=== PATIENT | male | born 1975 | race Hispanic/Latino ===

== ENCOUNTER 2021-10-10 09:27 | Emergency (ER) | payer MEDICARE, MEDICAID ==
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
[2021-10-10 12:29] LABS: Basophils % (Auto) 0.7 % (0.0-1.8); Eosinophils # (Auto) 0.1 K/mm3 (0.0-0.4); Eosinophils % (Auto) 1.6 % (0.0-4.3); Hematocrit 44.4 % (35.5-45.6); Hemoglobin 14.7 gm/dl (11.8-15.2); Lymphocytes # (Auto) 2.2 K/mm3 (1.2-5.4); Lymphocytes % (Auto) 35.1 % (13.4-35.0); Mean Corpuscular HGB Conc 33 % (32-34); Mean Corpuscular Volume 85 fl (84-94); Monocytes # (Auto) 0.5 K/mm3 (0.0-0.8); Monocytes % (Auto) 8.3 % (0.0-7.3); Platelet Count 218 K/mm3 (140-440); Red Blood Count 5.21 M/mm3 (3.65-5.03); Red Cell Distribution Width 15.7 % (13.2-15.2)
[2021-10-10 12:43] LABS: Alanine Aminotransferase 11 units/L (7-56); BUN/Creatinine Ratio 24; Blood Urea Nitrogen 19 mg/dL (9-20); Calcium 9.3 mg/dL (8.4-10.2); Hemolysis Index 2
[2021-10-10] MEDS ORDERED: SODIUM CHLORIDE 0.9% 1000 ML 1,000 ML IV ONE ×3 (12:47→18:43)
--- NOTE | 2021-10-10 12:54 | Cat Scan Report ---
CT CERVICAL SPINE WITHOUT CONTRAST INDICATION / CLINICAL INFORMATION: fall, leg weakness. TECHNIQUE: Axial CT images were obtained through the cervical spine. Sagittal and coronal reformatted images were produced. All CT scans at this location are performed using CT dose reduction for ALARA by means of automated exposure control. COMPARISON: None available. FINDINGS: C3-C5 ACDF. No evidence of hardware complication. Normal alignment. Vertebral body heights are intact . There is no evidence of fracture. No significant spinal canal narrowing. Prevertebral and paraverte bral soft tissues are within normal limits. Visualized lung apices are clear. IMPRESSION: No acute findings of the cervical spine. Signer Name: Royce Rosales MD Signed: 10/10/2021 12:50 PM Workstation Name: [id number]
[2021-10-10 12:58] LABS: Cocaine Screen,Urine Negative; Methadone Screen,Urine Negative; Opiate Screen,Urine Negative
--- NOTE | 2021-10-10 12:59 | Cat Scan Report ---
EXAMINATION: CT thoracic spine wo con. HISTORY: fall, leg weakness TECHNIQUE: Axial CT examination of the thoracic spine was obtained, with sagittal and coronal reforma tions. All CT scans at this location are performed using CT dose reduction for ALARA by means of auto mated exposure control. COMPARISON: None available. FINDINGS: Thoracic spinal alignment is preserved. Mild chronic superior endplate deformity with Schmorl's node at T10. Other vertebral body heights are preserved. No evidence of acute fracture. No significant yamileth tral canal narrowing. Minimal spondylosis, commensurate for age. There are multiple remote left-sided rib fractures, many of which are internally fixated. Partially imaged internally fixated fractures o f the left scapula. Left lower lobe pleural-based consolidative opacity with traction of the bronchovascular bundles, mos t compatible with round atelectasis. No acute process of the chest. Partially imaged postsurgical garrick nges of the stomach. Minimally complex cysts in the left kidney. No acute abnormality of the upper ab domen. IMPRESSION: 1. No acute findings of the thoracic spine. 2. Sequela of remote trauma of the left ribs/chest with rounded atelectasis of the left lower lobe. 3. Other incidental findings as above. Signer Name: Royce Rosales MD Signed: 10/10/2021 12:55 PM Workstation Name: [id number]
--- NOTE | 2021-10-10 13:04 | Cat Scan Report ---
EXAMINATION: CT lumbar spine wo con. HISTORY: fall, leg weakness TECHNIQUE: Axial CT examination of the lumbar spine was obtained, with sagittal and coronal reformati ons. All CT scans at this location are performed using CT dose reduction for ALARA by means of automa domenico exposure control. COMPARISON: None available. FINDINGS: Lumbar spinal alignment is normal. There are postoperative changes related to prior posterior spinal interbody fusion spanning L2-S1. 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 No evidence of hardware complication. Vertebral body heights are intact. There is no evidence of fracture. No significant spinal canal narr owing. Paravertebral soft tissues and retroperitoneal structures demonstrate no acute abnormality. IMPRESSION: 1. Postoperative changes of posterior spinal interbody fusion of L2-S1. No acute abnormality of the l umbar spine. No significant central canal narrowing. 2. Postoperative changes of left SI joint fusion. There is moderate erosive arthropathy of the left S I joint, likely related to prior surgery/trauma. Signer Name: Royce Rosales MD Signed: 10/10/2021 12:59 PM Workstation Name: [id number]
[2021-10-10 13:08] LABS: Amorphous Crystals,Urine Few; Bacteria,Urine 4+ /HPF (Negative); Bilirubin,Urine NEG (Negative); Blood,Urine NEG (Negative); Color,Urine Amber (Yellow); Mucus,Urine 3+ /HPF
[2021-10-10] MEDS ORDERED: HYDROmorphone 1 MG/1 ML INJ IV ONE (13:14)
[2021-10-10 13:15] LABS: Amphetamine Screen,Urine Positive; Benzodiazepines Screen,Urine Positive; Cannabinoid Screen,Urine Positive
[2021-10-10] MEDS ORDERED: cefTRIAXone/NS 1 GM/50 ML 1 GM/50 ML BAG IV ONE (13:26)
--- NOTE | 2021-10-10 14:51 | Magnetic Resonance Report ---
MR thoracic spine wo con INDICATION / CLINICAL INFORMATION: fall leg weakness. TECHNIQUE: Multisequence, multiplanar images of the thoracic spine were obtained. COMPARISON: CT done earlier today FINDINGS: ALIGNMENT: Normal alignment. VERTEBRAE:No aggressive osseous marrow signal. Vertebral body heights are preserved. SPINAL CORD: No abnormal cord signal. SPONDYLOSIS: No significant spinal canal or foraminal stenosis. PARASPINAL SOFT TISSUES: No significant abnormality. ADDITIONAL FINDINGS: None. IMPRESSION: No significant thoracic spine abnormality. Signer Name: Liam Villarreal MD Signed: 10/10/2021 2:46 PM Workstation Name: [id number]
--- NOTE | 2021-10-10 15:13 | Magnetic Resonance Report ---
. MR lumbar spine wo con INDICATION / CLINICAL INFORMATION: fall leg weakness. TECHNIQUE: Multisequence, multiplanar images of the lumbar spine were obtained. COMPARISON: CT done earlier today. FINDINGS: POST-SURGICAL CHANGES: Previous decompressive laminectomy and posterior fusion from L2 into the sacru m. ALIGNMENT: Normal alignment. VERTEBRAE:No aggressive osseous marrow signal. Vertebral body heights are preserved. VISUALIZED SPINAL CORD: The conus appears within normal limits. [id number] ANALYSIS: L1-2: No significant spinal canal stenosis. No significant foraminal narrowing. L2-3: No significant spinal canal stenosis. No significant foraminal narrowing. L3-4: No significant spinal canal stenosis. No significant foraminal narrowing. L4-5: No significant spinal canal stenosis. No significant foraminal narrowing. L5-S1: No significant spinal canal stenosis. No significant foraminal narrowing. PARASPINAL SOFT TISSUES: No significant abnormality. ADDITIONAL FINDINGS: None. IMPRESSION: No acute abnormality of the lumbar spine. Postsurgical changes as described without recurrent spinal stenosis. Definitions used for the purposes of this report: Lumbar canal stenosis (Bell et al. Br J Radiol. 2012;86(8786):[id number]): No stenosis: No attenuation of the CSF spaces Mild stenosis: Anterior CSF space mildly obliterated Moderate stenosis: Anterior CSF space is moderately obliterated; cauda equina partially aggregated Severe stenosis: Marked compression of the dural sac; cauda equina cannot be visually and a ppear as a bundle Lumbar lateral recess stenosis (Vlad et al. World J Radiol. 2017 November 13;9(5):223-229): No stenosis: Nerve root is bathed in fluid Mild stenosis: Narrowing of the lateral recess without root deviation Moderate stenosis: Narrowing of the recess with nerve root deviation Severe stenosis: Compression of the nerve root Lumbar neural foraminal stenosis (Steven et al. AJR Am J Roentgenol. 2010 Sep;194(4):1095-8): No stenosis: No attenuation of the fat in the foramen Mild stenosis: Loss of the fat in the foramen on two sides Moderate stenosis: Loss of the fat in the foramen all four sides Severe stenosis: Loss of the fat in the foramen all four sides and compression of the nerve root Signer Name: Liam Villarreal MD Signed: 10/10/2021 3:09 PM Workstation Name: [id number]
[2021-10-10 22:55] VITALS: BP 117/54
== END 2021-10-10 22:57 | disposition home or self-care (01) ==
LOC: ED 09:27
DX: Z04.6 Encounter for general psychiatric examination, requested by authority (principal); F32.9 Major depressive disorder, single episode, unspecified; G89.29 Other chronic pain; F15.10 Other stimulant abuse, uncomplicated; F19.90 Other psychoactive substance use, unspecified, uncomplicated; F11.10 Opioid abuse, uncomplicated; N39.0 Urinary tract infection, site not specified; F17.200 Nicotine dependence, unspecified, uncomplicated; F12.90 Cannabis use, unspecified, uncomplicated; Z88.8 Allergy status to other drugs, medicaments and biological substances; Z88.6 Allergy status to analgesic agent; Z79.899 Other long term (current) drug therapy
CPT/HCPCS: 36415; 72125; 72128; 72131; 72146; 72148; 80053; 80307; 81001; 82550; 83735; 85025; 87086; 96361; 96365; 96375; 99285; J0696; J1170; J7030; 80320; G0480